=== PATIENT | male | born 1975 | race Caucasian/White ===

== ENCOUNTER 2020-12-10 21:56 | Emergency (ER) | payer BC, SELFPAY ==
--- NOTE | ~2020-12-10 | CT_ITS ---
EXAMINATION: CT brain wo con DATE: 12/11/2020 00:48 INDICATION: Seizure, loss of consciousness. Diaphoresis. TECHNIQUE: Computed tomography (CT) of the head was performed without intravenous contrast. The mA wa s adjusted according to patient size. Iterative reconstruction technique was employed. Exam dose: 60 5.33 mGy-cm total exam DLP. COMPARISON: None FINDINGS: No intracranial mass lesion or hemorrhage or cerebrovascular accident. No midline shift or mass effect effect. Normal ventricular size. No subdural or epidural hematoma. The orbital contents a re unremarkable. There is an opacified right ethmoid air cell and minimal focal mucoperiosteal thickening of the left maxillary sinus. The included mastoid air cells and paranasal sinuses are otherwise unremarkable. No fracture or bone destruction of the cranial vault. IMPRESSION: No significant intracranial abnormality Reviewed, dictated and finalized at [facility] Reviewed, dictated and finalized at [facility].
[2020-12-10 22:13] VITALS: BP 122/72; PULSE 86; RESP 18; TEMP 36.4; O2SAT 100
--- NOTE | 2020-12-10 22:27 | ECG_ITS ---
Measurements Intervals [place] Rate: 73 P: 76 ME: 164 QRS: 22 QRSD: 85 T: 48 QT: 367 QTc: 405 Interpretive Statements SINUS RHYTHM POSSIBLE LEFT ATRIAL ENLARGEMENT INCOMPLETE RIGHT BUNDLE BRANCH BLOCK BORDERLINE ECG Electronically Signed On 12-11-2020 6:12:20 CDT by Shane Kenyon D.O.
[2020-12-10 22:53] LABS: Basophils Absolute Auto 0.1 K/mm3 (0.0-0.1); Eosinophils Absolute Auto 0.2 K/mm3 (0-0.3); Eosinophils Percent Auto 2.7 % (0-4.4); Hematocrit 43.1 % (42.0-52.0); Hemoglobin 15.1 g/dL (14.0-18.0); Immature Granulocyte Absolute 0.02 K/mm3 (0.00-0.031); Immature Granulocyte Percent A 0.3 % (0-0.5); Lymphocytes Absolute Auto 3.16 K/mm3 (0.9-3.2); Mean Corpuscular Hemoglobin 31.8 pg (26-34); Mean Corpuscular Volume 90.7 fl (80-100); Mean Platelet Volume 9.7 fl (7.4-10.4); Monocytes Absolute Auto 0.5 K/mm3 (0.1-0.6); Monocytes Percent Auto 6.9 % (2.6-8.5); Neutrophils Absolute Auto 3.7 K/mm3 (1.3-6.7); Neutrophils Percent Auto 48.1 % (45.5-73.1); Platelet Count Result 236 k/mm3 (150-375); Red Blood Count 4.75 M/mm3 (4.6-6.20); White Blood Count 7.7 K/mm3 (4.5-10.0)
[2020-12-10 23:05] LABS: Alanine Aminotransferase 22 U/L (4-50); Albumin Level 4.7 g/dL (3.5-5.1); Alkaline Phosphatase 40 U/L (38-126); Anion Gap 11 mmol/L (8-16); Aspartate Amino Transferase 33 U/L (17-59); Bilirubin,Total 0.4 mg/dL (0.2-1.3); Blood Urea Nitrogen 13 mg/dL (9-20); Calcium 9.1 mg/dL (8.4-10.2); Carbon Dioxide 26 mmol/L (22-30); Chloride 103 mmol/L (98-107); Estimated CRCL calculation 114 ml/min; Estimated Glomerular Filt Rate > 60; Glucose 138 mg/dL (65-110); Potassium 3.9 mmol/L (3.4-5.0); Sodium 140 mmol/L (137-145)
[2020-12-11 00:06] LABS: Creatine Kinase 191 U/L (55-170)
--- NOTE | 2020-12-11 00:49 | ED.SEIZURE ---
HPI - Seizure General Chief Complaint: Seizure Stated Complaint: seizure Time Seen by Provider: 12/11/20 00:23 Source: patient and family History of Present Illness HPI Narrative: Patient presents with concern for seizure. Patients spouse reports are watching TV and patient started having some rhythmic movement and moaning and was not responding to her questions he became very diaphoretic the episode lasted for approximately 5 minutes and patient was responding. She called EMS and brought to the ER for evaluation. Patient reports he remembers the event he is not sure why he was sweaty but felt like he was just dozing off because he was tired. Family reports they have 2 children with simple partial seizures but the patient has never previously been diagnosed with seizures denies any medical problems and is on medications. Reports he is feeling well today denies recent fevers, congestion, nausea, vomiting Related Data Allergies Allergy/AdvReac Type Severity Reaction Status Date / Time Penicillins AdvReac Hives Verified 12/11/20 00:58 Review of Systems Review of Systems: CONSTITUTIONAL: Denies fever, chills, or sweats. EYES: Denies visual changes, redness, or discharge. ENT: Denies rhinorrhea, congestion, sore throat, or otalgia. CARDIOVASCULAR: Denies chest pain, palpitations, or edema. RESPIRATORY: Denies cough or dyspnea. GASTROINTESTINAL: Denies abdominal pain, nausea, vomiting, or diarrhea. GENITOURINARY: Denies dysuria or hematuria. SKIN: Denies rash or itching. MUSCULOSKELETAL: Denies back pain, joint pain, or myalgia. NEUROLOGIC: Denies headache, numbness, dizziness, or weakness. PSYCHIATRIC: Denies anxiety or depression. All systems reviewed & are unremarkable except as noted in HPI and below PMFSH Social History Social History (Updated 12/11/20 @ 00:51 by Lio Nails MD) Substance use: never Exam Narrative: GENERAL: Well-appearing, well-nourished, and in no acute distress. HEAD: Normocephalic, atraumatic. EYES: PERRLA and EOMI. ENT: Nares clear, no rhinorrhea or epistaxis. Mucous membranes moist. NECK: Supple. No masses. No JVD CHEST: Clear to auscultation. No respiratory distress. No wheezes rales or rhonchi HEART: Regular rate and rhythm. No murmur heard. Normal peripheral pulses. ABDOMEN: Soft, nontender, nondistended, normal active bowel sounds. EXTREMITIES: Normal range of motion. No edema. SKIN: Warm, dry, no rash. NEURO: Cranial nerves II through XII are intact patient has 5 out of 5 strength in all extremities sensation intact to light touch in all extremities alert and oriented x3. PSYCH: Normal mood and affect. Course Reevaluation(s) Reevaluation #1: Patient is resting comfortably results reviewed with patient. Patient is comfortable with outpatient evaluation for seizure. Date: 12/11/20 Time: 01:40 Vital Signs Vital signs: Vital Signs Temperature 36.4 C 12/10/20 22:13 Pulse Rate 86 12/10/20 22:13 Respiratory Rate 18 12/10/20 22:13 Blood Pressure 122/72 12/10/20 22:13 Pulse Oximetry 100 12/10/20 22:13 Temperature 36.4 C 12/10/20 22:13 Pulse Rate 78 12/11/20 01:58 Respiratory Rate 16 12/11/20 01:58 Blood Pressure 132/84 12/11/20 01:58 Pulse Oximetry 98 12/11/20 01:58 MDM - Seizure MDM Narrative Medical decision making narrative: H&P as above, vss, pt looks clinically well, exam with no focal neurological deficits, labs clinically unremarkable, img clinically unremarkable, additional labs/img considered, symptomatic relief available as needed, on reevaluation pt continues to looks clinically well. Discussed case with Dr. Gresham neurology recommends patient has an EEG. Discussed with family they would prefer to have it performed as an outpatient., dns CVA, severe sepsis, intracranial hemorrhage, mass. plan to tx/monitor as op w/ neurology f/u findings/plan discussed with pt, pt agree/comfortable with plan, return precautions given, patient precautions
[2020-12-11 00:54] VITALS: O2SAT 100
[2020-12-11 00:56] VITALS: BP 130/78; PULSE 90; RESP 16; O2SAT 100
[2020-12-11 01:06] LABS: Lactic Acid Reflex 0.9 mmol/L (0.7-2.1)
[2020-12-11 01:58] VITALS: BP 132/84; PULSE 78; RESP 16; O2SAT 98
[2020-12-16 07:28] LABS: Prolactin 6.1 ng/mL (***)
== END 2020-12-11 01:57 | disposition home or self-care (01) ==
PROVIDERS: Emergency Medicine; Emergency Provider Emergency Medicine; PCP Family Medicine
DX: G25.89 Other specified extrapyramidal and movement disorders (principal)
CPT/HCPCS: 36415; 70450; 80053; 82550; 83605; 84146; 85025; 93005; 99284

== ENCOUNTER 2020-12-17 12:29 | Outpatient (CLI) | payer BC, SELFPAY ==
--- NOTE | 2020-12-18 09:25 | P.NEURO_ITS ---
Neurology EEG Report General Information Date of Study: 12/17/20 TEST eeg DIAGNOSIS None specified convulsions CONDITION OF RECORDING awake and drowsy EEG NUMBER [id number] CLINICAL HISTORY patient reported that he has had 1 syncopal episode after smoking too much of his THC keen his wants to rule out a seizure EEG DESCRIPTION basic resting occipital frequency consists of small amount of fairly well- organized low voltage 8 to 10 hertz per 2nd alpha admixed with low-voltage 15 to 18 hertz per 2nd beta during brief periods of wakefulness. Low-voltage beta activity seen diffusely during drowsiness. Bilateral symmetrical sleep activity seen during later stages of sleep. Photic stimulation produced normal drive. Hyperventilation not done. Non paroxysmal. Nonfocal. Nonlateralizing. IMPRESSION Normal record
== END 2020-12-17 12:30 | disposition home or self-care (01) ==
LOC: ANHNEURO 12:32
PROVIDERS: PCP Family Medicine; Visit Provider Psychiatry & Neurology Neurology
DX: R56.9 Unspecified convulsions (principal)
CPT/HCPCS: 95816

== ENCOUNTER 2021-05-29 02:42 | Emergency (ER) | payer BC, SELFPAY ==
--- NOTE | ~2021-05-29 | CT_ITS ---
EXAMINATION: CT brain wo con DATE: 05/29/2021 03:47 INDICATION: Fall. Head injury. Left parietal area laceration. TECHNIQUE: Computed tomography (CT) of the head was performed without intravenous contrast. The mA wa s adjusted according to patient size. Iterative reconstruction technique was employed. Exam dose: 68 1.00 mGy-cm total exam DLP. COMPARISON: 12/11/2020 CT brain FINDINGS: Mild subcutaneous emphysema in the left parietal area consistent with clinically reported l aceration. No radiopaque foreign body or skull fracture is evident. No intracranial mass lesion or hemorrhage or cerebrovascular accident. No midline shift or mass effec t. Normal ventricular size. Normal munguia-white matter differentiation. No subdural or epidural hematom a. IMPRESSION: No skull fracture or acute intracranial finding Reviewed, dictated and finalized at [facility] Reviewed, dictated and finalized at [facility].
--- NOTE | ~2021-05-29 | CT_ITS ---
EXAMINATION: CT cervical spine wo con DATE: 05/29/2021 03:47 INDICATION: Fall. Head and neck injury. TECHNIQUE: Computed tomography (CT) of the cervical spine was performed without intravenous contrast. Automated exposure control and iterative reconstruction technique were employed. Exam dose: 354.55 mGy-cm total exam DLP. COMPARISON: None FINDINGS: Normal lumbosacral spine. No fracture or dislocation or locked facet or prevertebral soft t issue swelling. Cervical interspaces are relatively well preserved. There is mild degenerative spurri ng posteriorly at C6-7. IMPRESSION: No evidence of fracture or dislocation or locked facet Mild degenerative change Reviewed, dictated and finalized at [facility]. Reviewed, dictated and finalized at [facility].
[2021-05-29 02:43] VITALS: BP 119/90; PULSE 83; RESP 16; TEMP 37; O2SAT 100
[2021-05-29 02:54] VITALS: BP 135/95; PULSE 73; RESP 14; O2SAT 100
--- NOTE | 2021-05-29 03:25 | ECG_ITS ---
Measurements Intervals [place] Rate: 78 P: 75 MS: 156 QRS: 24 QRSD: 94 T: 47 QT: 352 QTc: 403 Interpretive Statements SINUS RHYTHM ST ELEVATIONS V2, V3-CONSIDER EARLY REPOLARIZATION, INJURY PATTERN ABNORMAL ECG COMPARED TO ECG 12/10/2020 22:35:50 NO SIGNIFICANT CHANGES Electronically Signed On 05-29-2021 16:18:02 CDT by Nathan Brooke M.D.
[2021-05-29 03:51] VITALS: BP 124/89; PULSE 76; RESP 12; O2SAT 100
[2021-05-29] MEDS: SODIUM CHLORIDE 0.9% IV 1,000 ML 999 ML IV CONT (04:17)
--- NOTE | 2021-05-29 04:19 | ED.HEATRA ---
HPI - Head Injury General Chief complaint: Fall Stated complaint: lac to head Time Seen by Provider: 05/29/21 04:11 Source: patient Mode of arrival: ambulatory Limitations: no limitations History of Present Illness HPI Narrative: Patient is a 45-year-old male complaining of a cut on the left part of his head after he felt lightheaded while going the bathroom, sat on the toilet and fell forward. Patient denies any loss of consciousness. According to the when he found him he was diaphoretic. Patient admits to few drinks tonight. Patient denies any speech or visual disturbance, focal weakness or numbness, or unsteady gait. Patient denies any neck, chest, abdomen, back, hip, pelvis or any extremity pain/injury. Patient denies any symptoms at this time. Related Data Home Medications Medication Instructions Recorded Confirmed fluticasone propionate 50 1 spray INTRANASAL DAILY 03/23/21 03/23/21 mcg/actuation nasal spray,suspension Allergies Allergy/AdvReac Type Severity Reaction Status Date / Time Penicillins AdvReac Hives Verified 05/29/21 02:45 Review of Systems Review of Systems: All systems reviewed & are unremarkable except as noted in HPI and below Constitutional: Constitutional: Denies body ache(s), Denies chills, Denies excessive sweating, Denies fatigue, Denies fever(s), Denies headache(s), Denies lethargy, Denies malaise, Denies weakness and Denies weight loss Eyes: Eyes: Denies blurry vision, Denies change in vision and Denies loss of vision ENT: Denies dizziness, Denies ear discharge, Denies headache(s), Denies lip swelling, Denies epistaxis, Denies nasal congestion, Denies neck pain, Denies throat swelling and Denies tongue swelling Cardiovascular: Cardiovascular: Denies chest pain, Denies chest pain at rest, Denies chest pain with activity, Denies rapid heart rate, Denies edema, Denies irregular heart rhythm, Denies lightheadedness, Denies palpitations, Denies dyspnea and Denies dyspnea on exertion Respiratory: Respiratory: Denies chest congestion, Denies cough, Denies hemoptysis, Denies dyspnea and Denies dyspnea on exertion Gastrointestinal: Gastrointestinal: Denies abdominal pain, Denies melena, Denies hematochezia, Denies diarrhea, Denies nausea, Denies vomiting and Denies hematemesis Musculoskeletal: Musculoskeletal: Denies abnormal gait, Denies deformity, Denies joint swelling, Denies limited range of motion, Denies neck pain and Denies numbness Neurologic: Denies Abnormal speech present, Denies abnormal gait, Denies confusion, Denies headache(s), Denies focal weakness, Denies loss of vision, Denies numbness, Denies Other visual disturbances, Denies Sensory deficit (Neuro) and Denies weakness Psychiatric: Psychiatric: Denies confusion, Denies depression, Denies auditory hallucinations, Denies homicidal ideation and Denies suicidal ideation Endocrine: Endocrine: Denies cold intolerance, Denies excessive sweating, Denies fatigue, Denies heat intolerance and Denies palpitations Hematologic/Lymphatic: Hematologic/Lymphatic: Denies easy bleeding and Denies easy bruising Allergic/Immunologic: Allergic/Immunologic: Denies lip swelling, Denies throat swelling and Denies tongue swelling PMFSH Social History Social History Substance use: never Comments Past medical history: None Family history: None Social history: Non-smoker, occasional EtOH use, no drug use Exam Const: General: cooperative, healthy appearing, comfortable, no acute distress, well developed, alert and awake; No confusion Orientation/consciousness: oriented to person, oriented to place, oriented to time, patient oriented x3 and No confusion Limitations: no limitations HENMT: Head: normocephalic and atraumatic Ears: hearing grossly normal bilaterally, TM normal on the right and TM normal on the left General nose exam: Normal external nose present, Normal nares present and No
[2021-05-29 04:20] LABS: Basophils Absolute Auto 0.1 K/mm3 (0.0-0.1); Basophils Percent Auto 0.8 % (0.2-1.2); Eosinophils Absolute Auto 0.2 K/mm3 (0-0.3); Hemoglobin 15.3 g/dL (14.0-18.0); Immature Granulocyte Absolute 0.06 K/mm3 (0.00-0.031); Immature Granulocyte Percent A 0.6 % (0-0.5); Lymphocytes Absolute Auto 2.04 K/mm3 (0.9-3.2); Lymphocytes Percent Auto 20.1 % (18.3-44.2); Mean Corpuscular HGB Conc 35.6 g/dl (32-36); Mean Corpuscular Hemoglobin 31.5 pg (26-34); Mean Corpuscular Volume 88.7 fl (80-100); Mean Platelet Volume 9.5 fl (7.4-10.4); Monocytes Absolute Auto 0.6 K/mm3 (0.1-0.6); Monocytes Percent Auto 6.3 % (2.6-8.5); Neutrophils Absolute Auto 7.2 K/mm3 (1.3-6.7); Neutrophils Percent Auto 70.2 % (45.5-73.1); Platelet Count Result 242 k/mm3 (150-375); Red Blood Count 4.85 M/mm3 (4.6-6.20); Red Cell Distribution Width 12.1 % (11.5-14.5); White Blood Count 10.2 K/mm3 (4.5-10.0)
[2021-05-29 04:25] LABS: Add Urine Microscopic? YES; Appearance Urine Cloudy (Clear); Bilirubin Urine Negative (Negative); Blood Urine Negative (Negative); Color Urine Yellow (Yellow); Glucose Urine UA Negative (Negative); Ketones Urine Trace mg/dL (Negative); Leukocyte Esterase Ur Negative LEU/UL (Negative); Mucus Urine Rare /lpf; Nitrate Urine Negative (Negative); Protein Urine 1+ mg/dL (Negative); RBC Urine 0-2 /hpf (0-2); Specific Grav Ur 1.028 (1.001-1.035); Urobilinogen Urine Negative mg/dL (<2.0); WBC Urine 0-3 /hpf
[2021-05-29 04:29] LABS: Ethanol < 10 mg/dL (<10)
[2021-05-29 04:33] LABS: Alanine Aminotransferase 22 U/L (4-50); Albumin Level 4.3 g/dL (3.5-5.1); Alkaline Phosphatase 48 U/L (38-126); Anion Gap 6 mmol/L (8-16); Aspartate Amino Transferase 33 U/L (17-59); Bilirubin,Total 0.3 mg/dL (0.2-1.3); Blood Urea Nitrogen 20 mg/dL (9-20); Calcium 8.5 mg/dL (8.4-10.2); Carbon Dioxide 26 mmol/L (22-30); Chloride 105 mmol/L (98-107); Estimated CRCL calculation 92 ml/min; Estimated Glomerular Filt Rate > 60; Glucose 113 mg/dL (65-110); Potassium 3.9 mmol/L (3.4-5.0); Sodium 137 mmol/L (137-145)
[2021-05-29 04:39] LABS: Amphetamine Screen Urine Negative (Negative); Barbiturate Screen Urine Negative (Negative); Benzodiazepines Screen Urine Negative (Negative); Cannabinoid Screen Urine Negative (Negative); Cocaine Screen Urine Negative (Negative); Methadone Screen Urine Negative (Negative); Opiate Screen Urine Negative (Negative); Phencyclidine Screen Urine Negative (Negative)
[2021-05-29 05:51] VITALS: BP 127/68; PULSE 70; RESP 15; O2SAT 100
== END 2021-05-29 06:34 | disposition home or self-care (01) ==
PROVIDERS: Emergency Provider Emergency Medicine; PCP Family Medicine
DX: R55 Syncope and collapse (principal); S01.01XA Laceration without foreign body of scalp, initial encounter; W18.11XA Fall from or off toilet without subsequent striking against object, initial encounter; R94.31 Abnormal electrocardiogram [ECG] [EKG]
CPT/HCPCS: 36415; 70450; 72125; 80053; 80307; 81001; 85025; 93005; 96360; 99284; J7030